=== PATIENT | female | born 1950 | race Caucasian/White ===

== ENCOUNTER 2024-05-21 17:06 | Inpatient (IN) | payer OTHER ==
[2024-05-21 18:17] LABS: Absolute Basophils 0.1 K/uL (0-0.5); Absolute Lymphocytes (CBC) 0.7 K/uL (0.7-4.9); Absolute Monocytes 0.6 K/uL (0.1-1.3); Absolute Neutrophil 4.3 K/uL (1.8-8.0); Basophils % 1.3 % (0-1.3); Eosinophils % 0.1 % (0-4.4); Hematocrit 41.2 % (36.0-45.0); Hemoglobin 12.7 g/dL (12.0-15.0); Lymphocytes % 12.7 % (15.3-44.8); MCH 28.4 pg (27.0-35.0); MCHC 30.9 g/dL (32.0-36.0); MCV 91.8 fL (80-100); Monocytes % 10.9 % (3.3-12.3); Nucleated Red Blood Cells % 0.1 % (0-0); Platelets 201 thou/uL (152-406); RBC Red Blood Cell Count 4.49 M/uL (3.86-4.86); Red Cell Distribution Width 13.8 % (12.1-15.2)
[2024-05-21 18:28] LABS: Anion Gap 7.6 mEq/L (5.0-15.0); Potassium 4.6 mEq/L (3.5-5.1); Troponin High Sensitivity 34.7 pg/mL (<58.9)
[2024-05-21 18:51] LABS: Specific Gravity 1.019 (1.005-1.030); Sqamous Epithelial None Seen /HPF (None Seen); Urine Bacteria >50 /HPF (<20); Urine Bilirubin NEGATIVE (Negative); Urine Blood Negative (Negative); Urine Clarity Extremely Turbid (Clear); Urine Color Yellow (Yellow); Urine Crystals Unidentified Few /HPF (None Seen); Urine Culture Reflex Order REFLEXED; Urine Glucose NEGATIVE (Negative); Urine Ketones NEGATIVE (Negative); Urine Microscopic Reflex YN ORDER UMIC; Urine Mucus 4+ /HPF (None Seen); Urine Nitrite NEGATIVE (Negative); Urine Protein 2+ (Negative); Urine RBC <5 /HPF (None Seen); Urine Urobilinogen 1+ (Normal); Urine WBC 20-50 /HPF (<5); Urine Yeast (Budding) Trace /HPF (None Seen); Urine pH 5.5 (5.0-7.0)
--- NOTE | 2024-05-21 19:31 | ER ---
Nurse's Notes [facility] Name: Romelia Banerjee Age: 73 yrs Sex: Female : 1950 Arrival Date: 05/21/2024 Time: 17:06 Bed 16 Private MD: Diagnosis: Altered mental status;PEE;UTI Presentation: 05/21 17:16 Chief complaint: EMS states: Toned out for unresponsive. Found to be very lethargic ll1 today. 18 EJ 1 L NS bolus given. 89% RA. Coronavirus screen: Client denies travel out of the [place] in the last 14 days. At this time, the client does not indicate any symptoms associated with coronavirus-19. Ebola Screen: Patient denies travel to an Ebola-affected area in the 21 days before illness onset. Initial Sepsis Screen: Does the patient meet any 2 criteria? No. Patient's initial sepsis screen is negative. Does the patient have a suspected source of infection? No. Patient's initial sepsis screen is negative. Risk Assessment: Do you want to hurt yourself or someone else? Patient reports no desire to harm self or others. Onset of symptoms was May 21, 2024. 17:16 Method Of Arrival: EMS ll1 17:16 Acuity: KIRAN 2 ll1 Historical: - Allergies: 17:15 Iodinated Contrast Media - IV Dye; ll1 17:15 Aspirin; ll1 17:15 Betadine; ll1 17:15 Codeine; ll1 17:15 Iodine; ll1 17:15 PENICILLINS; ll1 17:15 Sulfa (Sulfonamide Antibiotics); ll1 17:15 soap; ll1 17:15 Latex, Natural Rubber; ll1 - PMHx: 17:15 Left leg wound; PVD; restless leg syndrome; ll1 - Immunization history:: Adult Immunizations up to date. - Infectious Disease History:: UNKNOWN. - Social history:: Smoking status: Patient denies any tobacco usage or history of. Screenin:40 [facility] ED Fall Risk Assessment (Adult) History of falling in the last 3 months, ll1 including since admission No falls in past 3 months (0 pts) Confusion or Disorientation Yes (5 pts) Intoxicated or Sedated No (0 pts) Impaired Gait No (0 pts) Mobility Assist Device Used No (0 pt) Altered Elimination Yes (1 pt) Score/Fall Risk Level 3 or more points = High Risk Oriented to surroundings, Hourly rounding (assess needs \T\ fall precautionary measures) done. Abuse screen: Denies threats or abuse. Nutritional screening: No deficits noted. Tuberculosis screening: No symptoms or risk factors identified. Assessment: 17:37 General: Appears distressed, uncomfortable, Behavior is calm, cooperative, appropriate ll1 for age. Pain: Denies pain. Neuro: Reports weakness. 17:54 Reassessment: No changes from previously documented assessment. Patient and/or family ll1 updated on plan of care and expected duration. Pain level reassessed. Patient is alert, oriented x 3, equal unlabored respirations, skin warm/dry/pink. 18:40 Reassessment: No changes from previously documented assessment. Patient and/or family iw updated on plan of care and expected duration. Pain level reassessed. Patient is alert, oriented x 3, equal unlabored respirations, skin warm/dry/pink. 19:05 Reassessment: beside report to ROBBY Anderson. ll1 20:08 Reassessment: PT IS D/C FROM THE ER. ATTEMPTING TO CALL THE SPOUSE FOR PICK-UP. dd2 20:50 Reassessment: Attempted to call for d/c of pt. dd2 21:06 Reassessment: spoke with pt , will be on the way to pick her up. iw 21:26 Reassessment: LARGE SKIN TEAR AND BRUISING NOTED TO RT UPPER ARM/ELBOW. DRIED BLOOD dd2 NOTED TO THE DRESSING. PT AAOX1, O2 \T\ 3 LPM NC. Vital Signs: 17:24 BP 100 / 71; Pulse 82; Resp 20; Pulse Ox 95% on 3 lpm NC; Pain 0/10; ll1 17:58 BP 102 / 51; Pulse 75; Resp 20; Temp 98.1; Pulse Ox 98% on 3 lpm NC; ll1 19:35 BP 106 / 78; Pulse 84; Resp 16; Pulse Ox 94% on 3 lpm NC; dd2 20:30 BP 143 / 93; Pulse 79; Resp 17; Pulse Ox 97% ; dd2 21:30 BP 121 / 66; Pulse 85; Resp 17; Pulse Ox 95% on 4 lpm NC; dd2 23:15 BP 128 / 65; Pulse 86; Resp 18; Pulse Ox 97% ; dd2 05/22 00:34 BP 128 / 64; Pulse 76; Resp 18; Temp 98.4; Pulse Ox 95% on 4 lpm NC; dd2 05/21 17:24 Pain Scale: Adult ll1 ED Course: 05/21 17:15 Patient arrived in ED. ll1 17:17 Triage completed. ll1 17:18 Arm band placed on Patient placed in an exam room, on a stretcher. ll1 17:18 Maintain EMS IV. Dressing intact. Good blood return noted. Site clean \T\ dry. Gauge \T\ ll 1 site: 18 G R EJ. Oxygen administration via nasal cannula \T\ 3L/min. 17:20 Yunior Louis MD is Attending Physician. bo1 17:24 Iftikhar Girard, ROBBY is Primary Nurse. ll1 17:40 Patient has correct armband on for positive identification. Bed in low position. ll1 Provided Education on: ER procedures and process. Client placed on continuous cardiac and pulse oximetry monitoring. NIBP monitoring applied. 17:53 Initial lab(s) drawn, by me, sent to lab. EKG done. ll1 17:54 Warm blanket given. ll1 18:40 Lactate w/ 2H reflex if indic. Sent. iw 18:40 Urinalysis w/ reflexes Sent. iw 18:40 Urine collected: straight cath specimen, clear, Amount Returned: 200mL. Straight cath iw inserted, using sterile technique, 14 Fr. Specimen obtained. Patient tolerated well. 19:15 XRAY Chest (1 view) In Process Unspecified. EDMS 19:35 No provider procedures requiring assistance completed. dd2 21:29 Wound care: to SKIN TEAR TO RT UPPER ARM/ELBOW located on right antecubital area and dd2 dorsal aspect of right forearm was cleaned with with NORMAL SALINE, dressed with 4X4s, Kerlix, XEROFORM. 21:34 Attending Physician role handed off by Yunior Louis MD rt 21:34 Ortiz Alfredo MD is Attending Physician. rt 22:14 CT Head Brain wo Cont In Process Unspecified. EDMS 22:46 Prince Maldonado MD is Hospitalizing Provider. rt 05/22 01:25 Patient admitted, IV remains in place. dd2 Administered Medications: 05/21 20:04 Drug: Rocephin IV 2 grams IV at bolus once; Given slow IV push per pharmarcy dd2 instructions Route: IV; Rate: bolus; Site: right jugular; 20:14 Follow up: IV Status: Completed infusion; IV Intake: 10ml dd2 20:19 Follow up: Response: No adverse reaction dd2 22:52 Drug: NS 0.9% IV 1000 ml IV at 1000 ml once; to be given as a bolus over 60 minutes dd2 Route: IV; Rate: 1000 ml; Site: right jugular; 23:07 Follow up: Response: No adverse reaction dd2 23:52 Follow up: IV Status: Completed infusion; IV Intake: 1000ml dd2 Medication: 17:40 VIS not applicable for this client. ll1 Intake: 20:14 IV: 10ml; Total: 10ml. dd2 23:52 IV: 1000ml; Total: 1010ml. dd2 Outcome: 19:30 Discharge ordered by MD. montelongo 22:46 Decision to Hospitalize by Provider. rt 05/22 01:25 Admitted to Med/surg accompanied by tech, room 430, with chart, dd2 Condition: stable Instructed on the need for admit, 01:30 Patient left the ED. dd2 Signatures: Dispatcher [employer] EDYolanda Hair RN RN iw Iftikhar Girard RN RN ll1 Ortiz Alfredo MD MD rt Yunior Louis MD MD bo1 SHANICE ADHIKARI RN RN dd2
--- NOTE | 2024-05-21 19:31 | EDPHYS ---
Physician Documentation [facility] Name: Romelia Banerjee Age: 73 yrs Sex: Female : 1950 Arrival Date: 05/21/2024 Time: 17:06 Bed 16 Private MD: ED Physician Ortiz Alfredo HPI: 05/21 19:18 This 73 yrs old Female presents to ER via EMS with complaints of altered bo1 mental status. 19:18 Per spouse, pt was more lethargic than normal today. Onset: The symptoms/episode bo1 began/occurred gradually, today. Severity of symptoms: At their worst the symptoms were mild Change from her usual. No recent hospitalizations or falls, pt stays in bed with spouse providing the care. Historical: - Allergies: 17:15 Iodinated Contrast Media - IV Dye; ll1 17:15 Aspirin; ll1 17:15 Betadine; ll1 17:15 Codeine; ll1 17:15 Iodine; ll1 17:15 PENICILLINS; ll1 17:15 Sulfa (Sulfonamide Antibiotics); ll1 17:15 soap; ll1 17:15 Latex, Natural Rubber; ll1 - PMHx: 17:15 Left leg wound; PVD; restless leg syndrome; ll1 - Immunization history:: Adult Immunizations up to date. - Infectious Disease History:: UNKNOWN. - Social history:: Smoking status: Patient denies any tobacco usage or history of. ROS: 19:24 Constitutional: Negative for fever, chills, and weight loss bo1 19:24 Respiratory: Negative for cough, shortness of breath, acute changes, 19:24 : Negative for urinary symptoms, Pt wears a diaper, 19:24 MS/extremity: Positive for Contractures, scoliosis of the spine, Negative for acute changes, 19:24 Skin: Negative for rash, acute changes, 19:24 Neuro: Positive for altered mental status, Lethargy, Negative for 19:24 All other systems are negative, Exam: 19:26 Constitutional: The patient appears in no acute distress, non-toxic, bo1 19:26 Cardiovascular: Rate: normal, Irregular, 19:26 ECG was reviewed by the Attending Physician. 19:26 Respiratory: the patient does not display signs of respiratory distress, Respirations: normal, Breath sounds: are clear throughout, Contracted neck and extremities, 19:26 Abdomen/GI: Inspection: distension, is not seen, 19:26 Neuro: Mentation: responsive to voice able to follow commands, sleepy, Pt will and can respond, 19:32 Constitutional: This is a female in no acute distress. bo1 Vital Signs: 17:24 BP 100 / 71; Pulse 82; Resp 20; Pulse Ox 95% on 3 lpm NC; Pain 0/10; ll1 17:58 BP 102 / 51; Pulse 75; Resp 20; Temp 98.1; Pulse Ox 98% on 3 lpm NC; ll1 19:35 BP 106 / 78; Pulse 84; Resp 16; Pulse Ox 94% on 3 lpm NC; dd2 20:30 BP 143 / 93; Pulse 79; Resp 17; Pulse Ox 97% ; dd2 21:30 BP 121 / 66; Pulse 85; Resp 17; Pulse Ox 95% on 4 lpm NC; dd2 23:15 BP 128 / 65; Pulse 86; Resp 18; Pulse Ox 97% ; dd2 05/22 00:34 BP 128 / 64; Pulse 76; Resp 18; Temp 98.4; Pulse Ox 95% on 4 lpm NC; dd2 05/21 17:24 Pain Scale: Adult ll1 MDM: 05/21 17:20 Medical Screening Exam initiated bo1 19:22 Differential Diagnosis sepsis, UTI. Data reviewed: vital signs, old medical records, bo1 lab test result(s), EKG. 19:28 Data reviewed: radiologic studies, plain films, Contracted body, sub-optimal view of bo1 the chest but no distinct infiltrates seen on prelim view in the ER. 23:42 Consideration of Admission/Observation Patient was admitted/placed on observation. rt Management of patient was discussed with the following: Hospitalist: Agrees to admit. I considered the following discharge prescriptions or medication management in the emergency department Medications were administered in the Emergency Department. See MAR. Independent interpretation of the following test(s) in the Emergency Department CT Scan: My interpretation is No intracranial hemorrhage syndrome interpretation of CT scan images. Counseling: I had a detailed discussion with the patient and/or guardian regarding the historical points, exam findings, and any diagnostic results supporting the discharge/admit diagnosis, lab results, radiology results, the need for further work-up and treatment in the hospital. Response to treatment: There is no appreciated change of the patient's symptoms at this time. 05/21 17:41 Order name: Basic Metabolic Panel; Complete Time: 19:16 ll1 05/21 17:41 Order name: CBC with Diff; Complete Time: 19:16 ll1 05/21 17:41 Order name: Troponin HS; Complete Time: 19:16 ll1 05/21 18:13 Order name: Urinalysis w/ reflexes; Complete Time: 19:16 bo1 05/21 18:13 Order name: Lactate w/ 2H reflex if indic.; Complete Time: 19:16 bo1 05/21 18:56 Order name: Urine Culture [facility] 05/21 22:51 Order name: Creatine Phosphokinase [facility] 05/21 22:51 Order name: Lactate w/ 2H reflex if indic. [facility] 05/21 22:51 Order name: Magnesium [facility] 05/21 22:51 Order name: Phosphorus [facility] 05/21 22:51 Order name: Urinalysis w/ reflexes [facility] 05/21 22:51 Order name: Basic Metabolic Panel [facility] 05/21 22:51 Order name: Basic Metabolic Panel [facility] 05/21 22:51 Order name: CBC with Automated Diff [facility] 05/21 22:51 Order name: CBC with Automated Diff [facility] 05/21 17:41 Order name: XRAY Chest (1 view); Complete Time: 21:19 1 05/21 21:34 Order name: CT Head Brain wo Cont; Complete Time: 22:43 rt 05/21 17:41 Order name: EKG; Complete Time: 17:42 1 05/21 22:51 Order name: Physical Therapy Consult [facility] 05/21 17:41 Order name: Cardiac monitoring; Complete Time: 17:53 1 05/21 17:41 Order name: EKG - Nurse/Tech; Complete Time: 17:53 1 05/21 17:41 Order name: IV Saline Lock; Complete Time: 17:41 ll1 05/21 17:41 Order name: Labs collected and sent; Complete Time: 17:41 1 05/21 17:41 Order name: O2 Per Protocol; Complete Time: 17:41 ll1 05/21 17:41 Order name: O2 Sat Monitoring; Complete Time: 17:41 ll1 EC:26 Rate is 91 beats/min. Rhythm is irregular. QRS [place] is Normal. PA interval is normal. bo1 QRS interval is normal. QT interval is normal. No Q waves. T waves are Normal. No ST changes noted. Clinical impression: Abnormal EKG without significant change. Interpreted by me. Reviewed by me. Administered Medications: 20:04 Drug: Rocephin IV 2 grams IV at bolus once; Given slow IV push per pharmarcy dd2 instructions Route: IV; Rate: bolus; Site: right jugular; 20:14 Follow up: IV Status: Completed infusion; IV Intake: 10ml dd2 20:19 Follow up: Response: No adverse reaction dd2 22:52 Drug: NS 0.9% IV 1000 ml IV at 1000 ml once; to be given as a bolus over 60 minutes dd2 Route: IV; Rate: 1000 ml; Site: right jugular; 23:07 Follow up: Response: No adverse reaction dd2 23:52 Follow up: IV Status: Completed infusion; IV Intake: 1000ml dd2 Disposition Summary: 05/21/24 22:46 Hospitalization Ordered Notes: Hospitalization Status: Inpatient Admission rt Provider: Prince Erica rt Location: Telemetry/MedSurg (Inpatient)(05/21/24 22:46) rt Condition: Stable(05/21/24 22:46) rt Problem: new(05/21/24 22:46) rt Symptoms: are unchanged(05/21/24 22:46) rt Bed/Room Type: Standard rt Room Assignment: 405(05/21/24 23:19) rv1 Diagnosis - Altered mental status rt - PEE rt - UTI rt Forms: - Medication Reconciliation Form rt - SBAR form rt - Leadership Thank You Letter rt Signatures: Dispatcher [employer] EDMS Iftikhar Girard RN RN ll1 Ortiz Alfredo MD MD rt Janene David rv1 Yunior Louis MD MD bo1 SHANICE ADHIKARI RN RN dd2 Corrections: (The following items were deleted from the chart) 18:13 18:13 Urinalysis+U.LAB.BRZ ordered. EDMS EDMS 21:33 19:30 Home bo1 rt 21:33 19:30 new bo1 rt 21:33 19:30 are unchanged bo1 rt 21:33 19:30 Stable bo1 rt 21:33 19:30 UTI/ Urinary tract infection, site not specified bo1 rt 21:34 21:34 Head Brain Wo Cont+CT.RAD.BRZ ordered. EDMS EDMS 23: 22:46 rt rv1 23:16 23:07 404 rv1 rv1 23:19 23:16 rv1 rv1
[2024-05-21] MEDS ORDERED: CEFTRIAXONE 2000 MG/VIAL ONE (19:56)
--- NOTE | 2024-05-21 19:56 | RAD REPORT ---
EXAMINATION: ONE VIEW CHEST XR CLINICAL INDICATION: Female, 73 years old.,MALAISE TECHNIQUE: Frontal chest projection is submitted. Examination is limited by patient positioning and t echnique. COMPARISON: 01/29/2010 FINDINGS: Severe kyphotic deformity and patient rotation limits evaluation especially with portions of the lowe r jaw overlying the left upper lung. Allowing for this, no focal airspace opacity is appreciated, although the left costophrenic angle region appears opacified which could relate to patient rotation and/or prominent epicardial fat. No pneumothorax or sizable effusion. The heart is normal in size. Dense calcifications along the mitral valve Mediastinal contours are unremarkable. IMPRESSION: No acute intrathoracic abnormalities. Findings as above.
--- NOTE | 2024-05-21 22:42 | RAD REPORT ---
EXAM: CT Head Brain Wo Cont HISTORY: ams COMPARISON: None TECHNIQUE: Multiple contiguous axial images were obtained for a CT of the brain without contrast. Sag ittal and coronal reformats were performed. One or more of the following dose reduction techniques were used: Automated exposure control, adjus tment of the mA and kV according to patient size, and iterative reconstruction. Unless otherwise specified, incidental findings do not require dedicated imaging follow-up. FINDINGS: Patient's head positioning and prominent beam hardening artifact particularly along the frontal and p osterior fossa regions limited evaluation. No evidence of hydrocephalus, intracranial hemorrhage, or extra-axial fluid collection. Moderate brain atrophy with moderate periventricular and deep white matter chronic microvascular isc hemic changes present. The calvarium is intact. The visualized paranasal sinuses and mastoid air cells are essentially clear . IMPRESSION: No evidence of acute intracranial abnormality allowing for limitations mentioned above.
[2024-05-21] MEDS ORDERED: NA CHLORIDE 0.9% 1,000 ML ONE (22:44)
[2024-05-21] MEDS ORDERED: ONDANSETRON 4 MG/2 ML VIAL IV PRN (22:46)
--- NOTE | 2024-05-21 23:11 | P.HP ---
Certification for Inpatient Patient admitted to: Inpatient With expected LOS: >2 Midnights Practitioner: I am a practitioner with admitting privileges, knowledge of patient current condition, hospital course, and medical plan of care. Services: Services provided to patient in accordance with Admission requirements found in Title 42 Section 412.3 of the Code of Federal Regulations Patient History Date of Service: 05/21/24 Reason for admission: AMS, PEE/UTI History of Present Illness: Patient is a 73-year-old female brought in via EMS for evaluation of altered mental status. She is unable to provide reliable history. As per , patient has been unable to walk for the past 3 days. Her mental status is also been declining in the interim PERIOD. She usually ambulates with a walker despite a contracted neck. Workup in the ER significant for PEE with a creatinine 1.63, abnormal urine analysis. During my evaluation, patient complained of pain. She looked clinically dry, cachectic and contracted. She is unable to provide much history. She received a dose of ceftriaxone in the ER. Allergies aspirin Allergy (Unverified 09/14/16 05:15) Unknown codeine Allergy (Verified 08/27/13 00:58) Hives/Rash Iodinated Contrast Media [Iodinated Contrast Media - IV Dye] Allergy (Verified 08/27/13 00:58) Itching/Hives/Rash Penicillins Allergy (Verified 08/27/13 00:28) Itching, hives, rash povidone-iodine [From Betadine] Allergy (Unverified 09/14/16 05:15) Unknown soap [From Betadine] Allergy (Unverified 09/14/16 05:15) Unknown Sulfa (Sulfonamide Antibiotics) Allergy (Verified 08/27/13 00:57) Nausea/Vomiting latex Adverse Reaction (Verified 10/25/14 16:03) Shortness of breath Iodine-Iodi Allergy (Uncoded 03/19/15 13:50) Unknown Home Medications: Multivitamin [Multivitamins] 1 cap PO DAILY 10/25/14 Ropinirole HCl [Requip*] 0.25 mg PO DAILY 10/25/14 Trazodone HCl [Desyrel] 100 mg PO BEDTIME 10/25/14 Venlafaxine HCl *Xr* [Effexor XR] 75 mg PO BID 10/25/14 Biotin 5 mg PO DAILY 12/16/19 clonazePAM [Clonazepam] 0.5 mg PO DAILY PRN 12/16/19 - Past Medical/Surgical History Diabetic: No -: DVT -: depression -: L neck pain -: hx of colon cancer -: Breast cancer -: CHF -: Kidney failure -: Diabetes -: L neck internal tens unit -: L eye muscle surgery -: tonsillectomy -: hysterectomy -: hysterectomy -: colon resection -: double masectomy -: L leg sx and R knee sx - Social History Alcohol use: No CD- Drugs: No Caffeine use: Yes Physical Examination - Physical Exam General: Cachectic, Other (Contracted, disheveled) Respiratory: Clear to auscultation bilaterally, Normal air movement Cardiovascular: No edema, Normal pulses, Regular rate/rhythm, Normal S1 S2 Neurological: Other (CONFUSED) - Studies Laboratory Data (last 24 hrs) 05/21/24 05/21/24 17:45 17:45 WBC 5.80 Hgb 12.7 Hct 41.2 Plt Count 201 Sodium 140 Potassium 4.6 BUN 26 H Creatinine 1.63 H Glucose 89 Assessment and Plan - Problems (Diagnosis) (1) Acute encephalopathy Current Visit: Yes Status: Acute (2) Generalized weakness Current Visit: Yes Status: Acute (3) Depression Current Visit: No Status: Acute (4) History of breast cancer Current Visit: No Status: Acute (5) History of colon cancer Current Visit: No Status: Acute (6) Osteoarthritis Current Visit: No Status: Acute - Plan Assessment Patient is a 73-year-old female with a past medical history of cervical spondylolysis, anxiety and depression. She is brought in by EMS for evaluation of altered mental status and inability to walk. Workup in the ER has revealed evidence of UTI and acute kidney injury. Patient's mental status is also below baseline. Her CT head was unremarkable. Acute metabolic encephalopathy UTI PEE Cervical spondylolysis Generalized weakness Severe malnutrition Plan: Will admit inpatient with telemetry Continue patient on ceftriaxone and IV fluid infusion Follow urine culture PT/OT ordered DVT prophylaxis Will go ahead and place a nutrition consult and a social services assistant consult - Advance Directives Does patient have a Living Will: No Does patient have a Durable POA for Healthcare: No
[2024-05-22] MEDS: HEPARIN 5000 UNIT/ML 1 ML VIAL SQ SCH (01:00)
[2024-05-22 02:47] VITALS: BMI 21.4
[2024-05-22] MEDS: NA CHLORIDE 0.9% 1,000 ML IV SCH (02:54)
[2024-05-22 07:20] LABS: Absolute Lymphocytes (CBC) 0.6 K/uL (0.7-4.9); Absolute Monocytes 0.7 K/uL (0.1-1.3); Absolute Neutrophil 6.7 K/uL (1.8-8.0); Basophils % 0.1 % (0-1.3); Hematocrit 44.8 % (36.0-45.0); Hemoglobin 13.7 g/dL (12.0-15.0); Lymphocytes % 7.5 % (15.3-44.8); MCH 28.1 pg (27.0-35.0); MCHC 30.7 g/dL (32.0-36.0); MCV 91.3 fL (80-100); MPV 7.9 fL (7.6-11.3); Magnesium 1.9 mg/dL (1.6-2.4); Monocytes % 8.5 % (3.3-12.3); Neutrophils % 83.9 % (41.7-73.7); Phosphorus 2.6 mg/dL (2.5-4.9); Platelets 197 thou/uL (152-406); Red Cell Distribution Width 13.9 % (12.1-15.2)
[2024-05-22 07:28] LABS: Anion Gap 12.3 mEq/L (5.0-15.0); Potassium 4.3 mEq/L (3.5-5.1)
[2024-05-22] MEDS: CEFTRIAXONE 1,000 MG in NA CHLORIDE 0.9% 50 ML IVPB SCH (08:43)
--- NOTE | 2024-05-22 11:49 | P.PN ---
Date of Service: 05/22/24 Subjective: family reports decreased intake at home, doesn't get out of bed much Hasn't been able to walk for last 3 days. Previously able to ambulate with walker unassisted. confusion started last night per patient Most info obtained from at bedside. ROS: 10 point ROS as noted above, otherwise negative Physical Exam: GEN: Awake, confused, oriented x1 HEENT: contracted neck , resting on left upper chest CV: Regular rate and rhythm, no edema Pulm: diminished bilaterally at basesm, on 5L NC ABD: soft, nontender, nondistended Integumentary: dry skin, scattered ecchymosis and skin tears Problem List: Acute metabolic encephalopathy, likely secondary to UTI PEE, prerenal, improved Generalized weakness Severe protein calorie malnutrition NIDDM2 chronic CHF Hx DVT Hx breast cancer s/p double masectomy Hx colon cancer s/p resection Acute metabolic encephalopathy, likely secondary to UTI Generalized weakness Severe protein calorie malnutrition Patient presents with progressive weakness, decreased responsiveness. Inability to walk for 3 days. +decreased intake. prior to this episode, was able to ambulate with a walker unassisted. Needed some assistance with transfers. no history of dementia per at bedside CT head was negative for any acute findings allowing for limitations Continue empiric rocephin (05/21-) urine cx (05/21): 4+ GNR prelim follow urine culture continue IV fluids PEE, prerenal, improved continue IV fluids continue to monitor renal function improved with IVF NIDDM2 accu-cheks, SSI chronic CHF Hx DVT Hx breast cancer s/p double masectomy Hx colon cancer s/p resection confirm home meds, restart as appropriate states he will bring in med list VTE: heparin sq Code: Full Dispo: Home, ~3 days Family updated at bedside 05/22 Time Spent Managing Pts Care (In Minutes): 55
[2024-05-22 16:42] LABS: Specific Gravity 1.016 (1.005-1.030); Sqamous Epithelial <5 /HPF (None Seen); Urine Bacteria <20 /HPF (<20); Urine Bilirubin NEGATIVE (Negative); Urine Blood Negative (Negative); Urine Clarity Extremely Turbid (Clear); Urine Color Yellow (Yellow); Urine Crystals Unidentified Few /HPF (None Seen); Urine Culture Reflex Order NOT NEEDED; Urine Glucose NEGATIVE (Negative); Urine Ketones 2+ (Negative); Urine Microscopic Reflex YN ORDER UMIC; Urine Mucus Slight /HPF (None Seen); Urine Nitrite NEGATIVE (Negative); Urine Protein 1+ (Negative); Urine RBC <5 /HPF (None Seen); Urine Urobilinogen Normal (Normal); Urine WBC Clump Rare /HPF (None Seen); Urine Yeast (Budding) Trace /HPF (None Seen); Urine pH 5.5 (5.0-7.0)
[2024-05-22] MEDS: GABAPENTIN 100 MG CAP PO SCH (18:13)
[2024-05-22] MEDS: TRAZODONE 50 MG TABLET PO SCH (20:13)
[2024-05-22] MEDS: VENLAFAXINE HCL XR 75 MG CAP PO SCH (20:13)
[2024-05-23 06:50] LABS: Absolute Lymphocytes (CBC) 0.4 K/uL (0.7-4.9); Absolute Monocytes 0.5 K/uL (0.1-1.3); Absolute Neutrophil 5.4 K/uL (1.8-8.0); Basophils % 0.3 % (0-1.3); Hematocrit 44.2 % (36.0-45.0); Hemoglobin 13.8 g/dL (12.0-15.0); Lymphocytes % 6.8 % (15.3-44.8); MCH 28.2 pg (27.0-35.0); MCHC 31.3 g/dL (32.0-36.0); MCV 89.9 fL (80-100); Monocytes % 8.2 % (3.3-12.3); Neutrophils % 84.7 % (41.7-73.7); Nucleated Red Blood Cells % 0.1 % (0-0); Platelets 226 thou/uL (152-406); RBC Red Blood Cell Count 4.91 M/uL (3.86-4.86); Red Cell Distribution Width 14.1 % (12.1-15.2)
[2024-05-23 06:54] LABS: AST/SGOT 27 U/L (15-37); Albumin 2.9 g/dL (3.4-5.0); Albumin/Globulin Ratio 0.8 (1.1-1.8); Alkaline Phosphatase 75 U/L (45-117); Anion Gap 5.5 mEq/L (5.0-15.0); BUN Blood Urea Nitrogen 18 mg/dL (7-18); Bicarbonate 34 mEq/L (21-32); Bilirubin Total 0.4 mg/dL (0.2-1.0); Globulin 3.8 g/dL (2.3-3.5); Glomerular Filtration Rate 95 ml/min (=/>90); Glucose Level 137 mg/dL (74-106); Magnesium 1.8 mg/dL (1.6-2.4); Potassium 3.5 mEq/L (3.5-5.1); Protein, Total 6.7 g/dL (6.4-8.2); Sodium Level 144 mEq/L (136-145)
[2024-05-23 06:56] LABS: ALT/SGPT < 14 U/L (13-56)
[2024-05-23] MEDS: POTASSIUM CL SA 10 MEQ TAB PO ONE (08:31)
[2024-05-23] MEDS: ROPINIROLE HCL 0.25 MG TAB PO SCH (08:31)
[2024-05-23] MEDS: Levofloxacin 750mg IV 750 MG/150 ML BAG IV SCH (08:31)
[2024-05-23] MEDS: MULTIVITAMIN TAB PO SCH (08:31)
--- NOTE | 2024-05-23 08:46 | P.PN ---
Date of Service: 05/23/24 Subjective: mentation improving. More awake, talkative. Oriented x1-2 responding to some questions appropriately bladder scan last night with > 400 mL. Straight cathed overnight yielded ~550 mL urine ROS: 10 point ROS as noted above, otherwise negative Physical Exam: GEN: Awake, confused, Oriented x1-2 (knows her name and that we are in [place]) HEENT: contracted neck , resting on left upper chest CV: Regular rate and rhythm, no edema Pulm: diminished bilaterally at basesm, on 5L NC ABD: soft, nontender, nondistended Integumentary: dry skin, scattered ecchymosis and skin tears Problem List: Acute metabolic encephalopathy secondary to UTI Urinary retention PEE, prerenal, improved Generalized weakness Severe protein calorie malnutrition NIDDM2 chronic CHF Hx DVT Hx breast cancer s/p double masectomy Hx colon cancer s/p resection Acute metabolic encephalopathy secondary to UTI Urinary retention Generalized weakness Severe protein calorie malnutrition Patient presents with progressive weakness, decreased responsiveness. Inability to walk for 3 days. +decreased intake. prior to this episode, was able to ambulate with a walker unassisted. Needed some assistance with transfers. Patient states she uses home oxygen but unsure on settings. Will confirm with given her confusion no history of dementia per at bedside CT head was negative for any acute findings allowing for limitations urine cx (05/21): E. coli with intermediate resistance to rocephin Rocephin (05/21-05/22) switched to IV levaquin following culture results continue IV levaquin (05/23-) bladder scan overnight with > 400 mL retained urine yielded ~550 mL urine after straight cath overnight repeat bladder scan post void with 208mL may benefit from calderon placement. continue IV fluids; decreased to 30mL/hr (05/23) PEE, prerenal, improved continue to monitor renal function improved with IVF NIDDM2 accu-cheks, SSI chronic CHF Hx DVT Hx breast cancer s/p double masectomy Hx colon cancer s/p resection confirm home meds, restart as appropriate states he will bring in med list VTE: heparin sq Code: Full Dispo: Home, ~2-3 days Family updated at bedside 05/22 Time Spent Managing Pts Care (In Minutes): 55
[2024-05-23] MEDS ORDERED: VENLAFAXINE HCL XR 75 MG CAP PO SCH (09:00)
[2024-05-23] MEDS: NALTREXONE HCL 4.5 MG PO SCH (09:00)
[2024-05-23] MEDS: Magnesium Sulfate 2gm IVPB 2 G/50 ML BAG IV ONE (10:26)
[2024-05-23] MEDS: NA CHLORIDE 0.9% 1,000 ML IV SCH (10:27)
--- NOTE | 2024-05-23 12:01 | EKG ---
Test Date: 2024-05-21 Test Time: 17:49:48 [employer]ier Court[employer]: LML MEASUREMENT RESULTS: Intervals: Rate: 91 FL: QRSD: 80 QT: 376 QTc: 462 [place]: P: FL: QRS: 35 T: 12 INTERPRETIVE STATEMENTS: Normal sinus rhythm with sinus arrhythmia Electronically Signed On 05-23-24 12:00:35 MANAGER EMPLOYMENT by Pollo Carvalho
[2024-05-24 06:48] LABS: Albumin 2.4 g/dL (3.4-5.0); Albumin/Globulin Ratio 0.7 (1.1-1.8); Anion Gap 5.7 mEq/L (5.0-15.0); Bilirubin Total 0.5 mg/dL (0.2-1.0); Globulin 3.3 g/dL (2.3-3.5); Magnesium 1.9 mg/dL (1.6-2.4); Potassium 3.7 mEq/L (3.5-5.1); Protein, Total 5.7 g/dL (6.4-8.2)
[2024-05-24 08:02] LABS: Absolute Lymphocytes (CBC) 0.7 K/uL (0.7-4.9); Absolute Monocytes 0.8 K/uL (0.1-1.3); Absolute Neutrophil 3.9 K/uL (1.8-8.0); Basophils % 0.3 % (0-1.3); Eosinophils % 0.3 % (0-4.4); Hematocrit 38.3 % (36.0-45.0); Hemoglobin 12.3 g/dL (12.0-15.0); Lymphocytes % 13.1 % (15.3-44.8); MCH 28.5 pg (27.0-35.0); MCV 89.1 fL (80-100); MPV 7.2 fL (7.6-11.3); Monocytes % 14.6 % (3.3-12.3); Neutrophils % 71.7 % (41.7-73.7); Nucleated Red Blood Cells % 0.2 % (0-0); Platelets 189 thou/uL (152-406); Red Cell Distribution Width 13.7 % (12.1-15.2)
[2024-05-24] MEDS: POTASSIUM CL SA 10 MEQ TAB PO ONE (11:54)
--- NOTE | 2024-05-24 16:03 | P.PN ---
Subjective Date of Service: 05/24/24 Chief Complaint: AMS, PEE/UTI Spouse reports patient mental status significantly improved No issues overnight. No recorded fever Patient tolerated diet according to spouse. Physical Examination - Vital Signs Temperature: 98.2 F Blood Pressure: 191/85 Pulse: 110 Respirations: 18 Pulse Ox (%): 95 Assessment And Plan - Plan Physical Exam: GEN: Awake, confused, Oriented x 2 Neck: contracted neck/torticollis, kyphosis. CV: Regular rate and rhythm, no edema Pulm: diminished bilaterally, no rhonchi or crackles. ABD: soft, nontender, nondistended Integumentary: dry skin, scattered ecchymosis and skin tears Problem List: Acute metabolic encephalopathy secondary to UTI Urinary retention PEE, prerenal, improved Generalized weakness Severe protein calorie malnutrition NIDDM2 chronic CHF Hx DVT Hx breast cancer s/p double masectomy Hx colon cancer s/p resection Acute metabolic encephalopathy secondary to UTI Urinary retention Generalized weakness Severe protein calorie malnutrition Patient presents with progressive weakness, decreased responsiveness. Patient was able to ambulate with a walker by baseline according to report no history of dementia per at bedside CT head was negative for any acute findings. urine cx (05/21): E. coli with intermediate resistance to rocephin Rocephin (05/21-05/22) switched to IV levaquin following culture results continue IV levaquin (05/23-) Monitor postvoid residual continue IV fluids; decreased to 30mL/hr (05/23) PEE, prerenal Resolved with IV fluid continue to monitor renal function NIDDM2 accu-cheks, SSI Hx DVT Hx breast cancer s/p double masectomy Hx colon cancer s/p resection Continue home medications. VTE: heparin sq Code: Full Dispo: Home. Plan of care discussed with the .
[2024-05-24 17:12] LABS: Arterial Blood Carboxyhemoglob 1.3 % (0-1.5); Blood Gas Oxyhemoglobin 76.4 % (94-97); Blood Gas THB 13.4 g/dl (12-18); Blood O2 Saturation 78.8 % (92-98.5)
[2024-05-24] MEDS: METOPROLOL TARTRATE 5 MG/5 ML INJ IV ONE (19:12)
[2024-05-24] MEDS: METOPROLOL TARTRATE 5 MG/5 ML INJ IV STA ×2 (19:16→19:18)
--- NOTE | 2024-05-24 19:28 | P.PN ---
Date of Service: 05/24/24 Notified by nurse around 1906 hrs that a rapid was called on this patient. The nurse requested I come to the patient's bedside as the patient is now on a nonrebreather mask, and has a heart rate in the 140s. I immediately reported to the patient's bedside. The patient's stated prior to me entering the patient's room, that he wanted to change the patient's CODE STATUS to DO NOT RESUSCITATE. 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 Taylor (via telephone speaker) and all of his questions were answered to his satisfaction. Decision was made to place the patient on BiPAP with CODE STATUS DNR. Also, CXR, and metoprolol 5 mg IV was ordered.
[2024-05-24] MEDS: ENSURE ENLIVE 237 ML CAN PO SCH (21:00)
[2024-05-25] MEDS: METOPROLOL TARTRATE 5 MG/5 ML INJ IV PRN (15:02)
--- NOTE | 2024-05-25 16:17 | P.PN ---
Subjective Date of Service: 05/25/24 Chief Complaint: AMS, PEE/UTI Patient developed respiratory distress last night, respiratory rate up to the 40s and heart rate up to 160. Chest x-ray did not show any significant changes. Patient placed on BiPAP overnight and weaned off BiPAP this morning. She has been tolerating oxygen by nasal cannula so far. She occasionally has tachycardia. No recorded fever She was fed breakfast with assistance this morning. Physical Examination - Vital Signs Temperature: 98.5 F Blood Pressure: 129/82 Pulse: 100 Respirations: 18 Pulse Ox (%): 93 Assessment And Plan - Plan Physical Exam: GEN: Awake, confused, Oriented x 2 Neck: contracted neck/torticollis, kyphosis. CV: Regular rate and rhythm, no edema Pulm: diminished bilaterally, no rhonchi or crackles. ABD: soft, nontender, nondistended Integumentary: dry skin, scattered ecchymosis and skin tears Problem List: Acute metabolic encephalopathy secondary to UTI Urinary retention PEE, prerenal, improved Generalized weakness Severe protein calorie malnutrition NIDDM2 chronic CHF Hx DVT Hx breast cancer s/p double masectomy Hx colon cancer s/p resection Acute metabolic encephalopathy secondary to UTI Urinary retention Generalized weakness Severe protein calorie malnutrition Patient presents with progressive weakness, decreased responsiveness. Patient was able to ambulate with a walker at baseline according to report no history of dementia per at bedside CT head was negative for any acute findings. urine cx (05/21): E. coli with intermediate resistance to rocephin Rocephin (05/21-05/22) switched to IV levaquin following culture results continue IV levaquin (05/23-) Discontinue IV fluid. Acute respiratory failure with hypoxia and hypercapnia Associated with reflex tachycardia. Respiratory failure likely secondary to hypoventilation. Continue oxygen by nasal cannula BiPAP as needed Metoprolol IV as needed for SVT. PEE, prerenal Resolved with IV fluid continue to monitor renal function NIDDM2 accu-cheks, SSI Hx DVT Hx breast cancer s/p double masectomy Hx colon cancer s/p resection Continue home medications. Patient made DNR by . is also considering hospice if no significant clinical improvement. VTE: heparin sq Code: DNR Dispo: Home. Plan of care discussed with the .
[2024-05-25] MEDS: clonazePAM 0.5 MG TAB PO PRN (20:26)
--- NOTE | 2024-05-26 13:21 | P.PN ---
Subjective Date of Service: 05/26/24 Chief Complaint: AMS, PEE/UTI No major changes from yesterday. No issues overnight. Patient is on oxygen by nasal cannula. Physical Examination - Vital Signs Temperature: 98.2 F Blood Pressure: 142/72 Pulse: 105 Respirations: 22 Pulse Ox (%): 76 Assessment And Plan - Plan Physical Exam: GEN: Awake, confused, Oriented x 2 Neck: contracted neck/torticollis, kyphosis. CV: Regular rate and rhythm, no edema Pulm: diminished bilaterally, no rhonchi or crackles. ABD: soft, nontender, nondistended Integumentary: dry skin, scattered ecchymosis and skin tears Problem List: Acute metabolic encephalopathy secondary to UTI Urinary retention PEE, prerenal, improved Generalized weakness Severe protein calorie malnutrition NIDDM2 chronic CHF Hx DVT Hx breast cancer s/p double masectomy Hx colon cancer s/p resection Acute metabolic encephalopathy secondary to UTI Urinary retention Generalized weakness Severe protein calorie malnutrition Patient presents with progressive weakness, decreased responsiveness. Patient was able to ambulate with a walker at baseline according to report no history of dementia per at bedside CT head was negative for any acute findings. urine cx (05/21): E. coli with intermediate resistance to rocephin Rocephin (05/21-05/22) switched to IV levaquin following culture results continue IV levaquin (05/23-) Resume PT Acute respiratory failure with hypoxia and hypercapnia Associated with reflex tachycardia. Respiratory failure likely secondary to hypoventilation. Continue oxygen by nasal cannula BiPAP as needed Metoprolol IV as needed for SVT. PEE, prerenal Resolved with IV fluid continue to monitor renal function NIDDM2 accu-cheks, SSI Hx DVT Hx breast cancer s/p double masectomy Hx colon cancer s/p resection Continue home medications. Patient made DNR by . is also considering hospice if no significant clinical improvement. VTE: heparin sq Code: DNR Dispo: Home.
--- NOTE | 2024-05-27 13:59 | P.PN ---
Subjective Date of Service: 05/27/24 Chief Complaint: AMS, PEE/UTI feels patient is doing much better. Patient has been awake, finished her meal, participate in a conversation. No issues overnight. Patient is on 8-10 L oxygen by nasal cannula. reports decreased hearing in the right ear. 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 Neck: contracted neck/torticollis, kyphosis. CV: Regular rate and rhythm, no edema Pulm: diminished bilaterally, no rhonchi or crackles. ABD: soft, nontender, nondistended Integumentary: dry skin, scattered ecchymosis. Problem List: Acute metabolic encephalopathy secondary to UTI Urinary retention PEE, prerenal, improved Generalized weakness Severe protein calorie malnutrition NIDDM2 chronic CHF Hx DVT Hx breast cancer s/p double masectomy Hx colon cancer s/p resection Plan: Acute metabolic encephalopathy secondary to UTI Urinary retention Generalized weakness Severe protein calorie malnutrition Patient presents with progressive weakness, decreased responsiveness. Patient was able to ambulate with a walker at baseline according to report no history of dementia per at bedside CT head was negative for any acute findings. urine cx (05/21): E. coli with intermediate resistance to rocephin Rocephin (05/21-05/22) switched to IV levaquin following culture results continue IV levaquin (05/23-). Antibiotics day 6. Resume PT Acute respiratory failure with hypoxia and hypercapnia Associated with reflex tachycardia. Respiratory failure likely secondary to hypoventilation. Wean oxygen to keep SaO2 88 to 92%. BiPAP as needed Metoprolol IV as needed for SVT. PEE, prerenal Resolved with IV fluid continue to monitor renal function NIDDM2 accu-cheks, SSI Hx DVT Hx breast cancer s/p double masectomy Hx colon cancer s/p resection Continue home medications. Patient made DNR by . is also considering hospice if no significant clinical improvement. VTE: heparin sq Code: DNR Dispo: Home.
[2024-05-27 14:11] LABS: Absolute Eosinophils 0.1 K/uL (0-0.5); Absolute Lymphocytes (CBC) 0.9 K/uL (0.7-4.9); Absolute Monocytes 0.8 K/uL (0.1-1.3); Absolute Neutrophil 4.2 K/uL (1.8-8.0); Basophils % 0.3 % (0-1.3); Eosinophils % 1.6 % (0-4.4); Hematocrit 38.1 % (36.0-45.0); Lymphocytes % 14.7 % (15.3-44.8); MCH 28.2 pg (27.0-35.0); MCHC 31.4 g/dL (32.0-36.0); MCV 89.9 fL (80-100); MPV 7.9 fL (7.6-11.3); Monocytes % 13.5 % (3.3-12.3); Neutrophils % 69.9 % (41.7-73.7); Platelets 182 thou/uL (152-406); RBC Red Blood Cell Count 4.24 M/uL (3.86-4.86); Red Cell Distribution Width 13.9 % (12.1-15.2)
[2024-05-27 14:16] LABS: Anion Gap 6.8 mEq/L (5.0-15.0); Potassium 3.8 mEq/L (3.5-5.1)
[2024-05-27] MEDS: ACETAMINOPHEN 500 MG TAB PO PRN (18:09)
[2024-05-27 18:40] LABS: Magnesium 1.5 mg/dL (1.6-2.4); Phosphorus 2.6 mg/dL (2.5-4.9)
[2024-05-27] MEDS: ROPINIROLE HCL 0.25 MG TAB PO SCH (19:48)
[2024-05-27] MEDS: Magnesium Sulfate 2gm IVPB 2 G/50 ML BAG IV ONE (20:40)
[2024-05-28 06:46] LABS: Anion Gap 7.4 mEq/L (5.0-15.0); BUN Blood Urea Nitrogen 8 mg/dL (7-18); Bicarbonate 37 mEq/L (21-32); Glucose Level 85 mg/dL (74-106); Potassium 3.4 mEq/L (3.5-5.1); Sodium Level 137 mEq/L (136-145)
[2024-05-28 06:48] LABS: Glomerular Filtration Rate 117 ml/min (=/>90)
--- NOTE | 2024-05-28 12:55 | P.PN ---
Subjective Date of Service: 05/28/24 Chief Complaint: AMS, PEE/UTI Patient is awake and conversant. Oxygen weaned down to 7 L high flow. No issues overnight. . Physical Examination - Vital Signs Temperature: 98 F Blood Pressure: 127/70 Pulse: 84 Respirations: 14 Pulse Ox (%): 98 Assessment And Plan - Plan Physical Exam: GEN: Awake, Oriented x 2 Neck: contracted neck/torticollis, kyphosis. CV: Regular rate and rhythm, no edema Pulm: diminished bilaterally, no rhonchi or crackles. ABD: soft, nontender, nondistended Integumentary: dry skin, scattered ecchymosis. Problem List: Acute metabolic encephalopathy secondary to UTI Urinary retention PEE, prerenal, improved Generalized weakness Severe protein calorie malnutrition NIDDM2 chronic CHF Hx DVT Hx breast cancer s/p double masectomy Hx colon cancer s/p resection Plan: Acute metabolic encephalopathy secondary to UTI Urinary retention Generalized weakness Severe protein calorie malnutrition Patient was able to ambulate with a walker at baseline according to report no history of dementia per at bedside. Mental status significantly improved and patient is at baseline. CT head was negative for any acute findings. urine cx (05/21): E. coli with intermediate resistance to rocephin Rocephin (05/21-05/22) switched to IV levaquin following culture results continue IV levaquin (05/23-). Antibiotics day 6. Continue PT Acute respiratory failure with hypoxia and hypercapnia Associated with reflex tachycardia. Respiratory failure likely secondary to hypoventilation. Patient is currently tolerating 7 L high flow oxygen Wean oxygen to keep SaO2 88 to 92%. BiPAP as needed Metoprolol IV as needed for SVT. PEE, prerenal Resolved with IV fluid continue to monitor renal function NIDDM2 accu-cheks, SSI Hx DVT Hx breast cancer s/p double masectomy Hx colon cancer s/p resection Continue home medications. Patient made DNR by . is also considering hospice if no significant clinical improvement. Monitor response to treatment over the weekend, revisit goals of care discussion on Thursday. VTE: heparin sq Code: DNR Dispo: Home.
[2024-05-28] MEDS: POTASSIUM CL SA 10 MEQ TAB PO ONE (13:19)
[2024-05-28] MEDS: MELATONIN 3 MG TABLET PO PRN (23:33)
[2024-05-29 06:23] LABS: Anion Gap 3.8 mEq/L (5.0-15.0); Potassium 3.8 mEq/L (3.5-5.1)
[2024-05-29] MEDS: POTASSIUM CL SA 10 MEQ TAB PO ONE (09:33)
--- NOTE | 2024-05-29 13:52 | P.PN ---
Subjective Date of Service: 05/29/24 Chief Complaint: AMS, PEE/UTI Patient is clinically improving. She is currently tolerating 4 L oxygen by nasal. No issues overnight She is tolerating diet. . Physical Examination - Vital Signs Temperature: 98.1 F Blood Pressure: 137/74 Pulse: 91 Respirations: 14 Pulse Ox (%): 90 Assessment And Plan - Plan Physical Exam: GEN: Awake, Oriented x 2 Neck: contracted neck/torticollis, kyphosis. CV: Regular rate and rhythm, no edema Pulm: diminished bilaterally, no rhonchi or crackles. ABD: soft, nontender, nondistended Integumentary: dry skin, scattered bruises on extremities. Problem List: Acute metabolic encephalopathy secondary to UTI Urinary retention PEE, prerenal, improved Generalized weakness Severe protein calorie malnutrition NIDDM2 chronic CHF Hx DVT Hx breast cancer s/p double masectomy Hx colon cancer s/p resection Plan: Acute metabolic encephalopathy secondary to UTI Urinary retention Generalized weakness Severe protein calorie malnutrition Patient was able to ambulate with a walker at baseline according to report no history of dementia per at bedside. Mental status significantly improved and patient is at baseline. CT head was negative for any acute findings. urine cx (05/21): E. coli with intermediate resistance to rocephin Rocephin (05/21-05/22) switched to IV levaquin following culture results continue IV levaquin (05/23-). Antibiotics day 7. Continue PT Acute respiratory failure with hypoxia and hypercapnia Associated with reflex tachycardia. Respiratory failure likely secondary to hypoventilation. Patient is currently tolerating 5-6 L high flow oxygen Clinically improving. Wean oxygen to keep SaO2 88 to 92%. BiPAP as needed Metoprolol IV as needed for SVT. PEE, prerenal Resolved with IV fluid continue to monitor renal function NIDDM2 accu-cheks, SSI Hx DVT Hx breast cancer s/p double masectomy Hx colon cancer s/p resection Continue home medications. Patient made DNR by . is also considering hospice if no significant clinical improvement. Monitor response to treatment for the next 24 hours, revisit goals of care discussion tomorrow. VTE: heparin sq Code: DNR Dispo: Home.
[2024-05-30 05:59] LABS: Absolute Eosinophils 0.1 K/uL (0-0.5); Absolute Lymphocytes (CBC) 0.8 K/uL (0.7-4.9); Absolute Monocytes 0.7 K/uL (0.1-1.3); Absolute Neutrophil 3.5 K/uL (1.8-8.0); Basophils % 0.3 % (0-1.3); Eosinophils % 2.9 % (0-4.4); Hematocrit 36.7 % (36.0-45.0); Hemoglobin 11.4 g/dL (12.0-15.0); Lymphocytes % 15.5 % (15.3-44.8); MCH 28.2 pg (27.0-35.0); MCV 91.1 fL (80-100); MPV 7.6 fL (7.6-11.3); Neutrophils % 67.3 % (41.7-73.7); Platelets 190 thou/uL (152-406); RBC Red Blood Cell Count 4.03 M/uL (3.86-4.86); Red Cell Distribution Width 13.7 % (12.1-15.2)
[2024-05-30 06:24] LABS: Anion Gap 3.8 mEq/L (5.0-15.0); Potassium 3.8 mEq/L (3.5-5.1)
[2024-05-30] MEDS: POTASSIUM 25 MEQ EFFERV TAB PO ONE (08:04)
--- NOTE | 2024-05-30 18:54 | P.PN ---
Subjective Date of Service: 05/30/24 Chief Complaint: AMS, PEE/UTI No changes from yesterday. Patient is maintained on 6 L oxygen by nasal cannula. She is tolerating diet. . Physical Examination - Vital Signs Temperature: 98.3 F Blood Pressure: 129/79 Pulse: 94 Respirations: 16 Pulse Ox (%): 100 Assessment And Plan - Plan Physical Exam: GEN: Awake, Oriented x 2 Neck: contracted neck/torticollis, kyphosis. CV: Regular rate and rhythm, no edema Pulm: diminished bilaterally, no rhonchi or crackles. ABD: soft, nontender, nondistended Integumentary: scattered bruises on extremities. Problem List: Acute metabolic encephalopathy secondary to UTI Urinary retention PEE, prerenal, improved Generalized weakness Severe protein calorie malnutrition NIDDM2 chronic CHF Hx DVT Hx breast cancer s/p double masectomy Hx colon cancer s/p resection Plan: Acute metabolic encephalopathy secondary to UTI Urinary retention Generalized weakness Severe protein calorie malnutrition Patient was able to ambulate with a walker at baseline according to report no history of dementia per at bedside. Mental status significantly improved and patient is at baseline. CT head was negative for any acute findings. urine cx (05/21): E. coli with intermediate resistance to rocephin Rocephin (05/21-05/22) switched to IV levaquin following culture results continue IV levaquin (05/23-). Patient completed Levaquin for UTI. Continue PT Acute respiratory failure with hypoxia and hypercapnia Associated with reflex tachycardia. Respiratory failure likely secondary to hypoventilation. Patient is currently tolerating 5-6 L high flow oxygen Wean oxygen to keep SaO2 88 to 92%. BiPAP as needed PEE, prerenal Resolved with IV fluid continue to monitor renal function NIDDM2 accu-cheks, SSI Hx DVT Hx breast cancer s/p double masectomy Hx colon cancer s/p resection Continue home medications. Patient made DNR by . I had a discussion with the patient and her . Patient and would like to proceed with hospice. Social service consulted for arrangement for home hospice. VTE: heparin sq Code: DNR Dispo: Home with hospice.
[2024-05-31 04:11] VITALS: O2SAT 100
[2024-05-31 05:18] VITALS: TEMP 97.6
--- NOTE | 2024-05-31 09:15 | P.DS ---
Admission Date: 05/21/24 Discharge Date: 05/31/24 Reason for Admission: AMS, PEE/UTI Brief History of Present Illness: 73-year-old female brought in via EMS for evaluation of altered mental status. She is unable to provide reliable history. As per , patient has been unable to walk for the past 3 days. Her mental status is also been declining in the interim PERIOD. She usually ambulates with a walker despite a contracted neck. Workup in the ER significant for PEE with a creatinine 1.63, abnormal urine analysis. During my evaluation, patient complained of pain. She looked clinically dry, cachectic and contracted. She is unable to provide much history. She received a dose of ceftriaxone in the ER. Hospital Course: Problem List: Acute metabolic encephalopathy secondary to UTI Urinary retention PEE, prerenal, improved Generalized weakness Severe protein calorie malnutrition NIDDM2 chronic CHF Hx DVT Hx breast cancer s/p double masectomy Hx colon cancer s/p resection Physician discharge instructions: Patient presents with progressive weakness, decreased responsiveness, decreased intake, inability to walk for 3 days secondary to UTI. CT head was negative for any acute findings. Urine culture ended up growing E.coli, partially resistant to the empiric rocephin she initially received. Antibiotic was switched to levaquin following culture results and patient had improvement. Mental status significantly improved and returned to patient's baseline. Patient completed ~7 days of IV levaquin to treat UTI. She worked with PT and was able to sit at edge of bed and transfer with assistance. Discussed at length with patient and family, given her progressive declination, chronic comorbidities, worsening quality of life, they have decided to proceed with [facility] home hospice. Hospice DME supplies/equipment delivered 05/30 evening. Physical Exam: GEN: Awake, Oriented x2 Neck: contracted neck/torticollis, kyphosis. CV: Regular rate and rhythm, no edema Pulm: clear bilaterally, no rhonchi or crackles. ABD: soft, nontender, nondistended Integumentary: scattered bruises on extremities. Vital Signs/Physical Exam: Temp Pulse Resp BP Pulse Ox 97.6 F 88 14 130/67 99 05/31/24 08:00 05/31/24 08:00 05/31/24 08:00 05/31/24 08:00 05/31/24 08:00 Laboratory Data at Discharge: WBC 5.20 thou/uL (4.3-10.9) 05/30/24 05:20 Hgb 11.4 g/dL (12.0-15.0) L 05/30/24 05:20 Hct 36.7 % (36.0-45.0) 05/30/24 05:20 Plt Count 190 thou/uL (152-406) 05/30/24 05:20 Sodium 141 mEq/L (136-145) 05/30/24 05:20 Potassium 3.8 mEq/L (3.5-5.1) 05/30/24 05:20 BUN 5 mg/dL (7-18) L 05/30/24 05:20 Creatinine 0.25 mg/dL (0.55-1.02) L 05/30/24 05:20 Glucose 94 mg/dL (74-106) 05/30/24 05:20 Phosphorus 2.6 mg/dL (2.5-4.9) 05/27/24 13:54 Magnesium 1.5 mg/dL (1.6-2.4) L 05/27/24 13:54 Total Bilirubin 0.5 mg/dL (0.2-1.0) 05/24/24 06:00 AST 18 U/L (15-37) 05/24/24 06:00 ALT 17 U/L (13-56) 05/24/24 06:00 Alkaline Phosphatase 63 U/L (45-117) 05/24/24 06:00 Home Medications: Multivitamin [Multivitamins] 1 cap PO DAILY 10/25/14 Ropinirole HCl [Requip*] 0.25 mg PO DAILY 10/25/14 Trazodone HCl [Desyrel] 100 mg PO BEDTIME 10/25/14 Venlafaxine HCl *Xr* [Effexor XR] 75 mg PO BID 10/25/14 clonazePAM [Clonazepam] 0.5 mg PO DAILY PRN 12/16/19 Gabapentin 600 mg PO TID 05/22/24 Naltrexone HCl [Lotrexone] 4.5 mg PO DAILY 05/22/24 Oxycodone HCl 5 mg PO 05/22/24 Physician Discharge Instructions: Physician discharge instructions: Patient presents with progressive weakness, decreased responsiveness, decreased intake, inability to walk for 3 days secondary to UTI. CT head was negative for any acute findings. Urine culture ended up growing E.coli, partially resistant to the empiric rocephin she initially received. Antibiotic was switched to levaquin following culture results and patient had improvement. Mental status significantly improved and returned to patient's baseline. Patient completed ~7 days of IV levaquin to treat UTI. She worked with PT and was able to sit at edge of bed and transfer with assistance. Discussed at length with patient and family, given her progressive declination, chronic comorbidities, worsening quality of life, they have decided to proceed with [facility] home hospice. Hospice DME supplies/equipment delivered 05/30 evening. Followup: Nathan Radford MD [Primary Care Provider] - Time spent managing pt's care (in minutes): 45
[2024-05-31 11:46] VITALS: BP 132/82
== END 2024-05-31 13:15 | disposition hospice, home (50) | DRG 682 ==
LOC: ER 17:06 → ERHOLD 22:46 → 4TH 05-22 01:11
PROVIDERS: ADMIT Internal Medicine; ATTEND Hospitalist
PROC: 4A033R1 Measurement of Arterial Saturation, Peripheral, Percutaneous Approach (ICD-10-PCS; principal; 2024-05-24)
PROC: 5A09557 Assistance with Respiratory Ventilation, Greater than 96 Consecutive Hours, Continuous Positive Airway Pressure (ICD-10-PCS; 2024-05-24)
PROC: 02HV33Z Insertion of Infusion Device into Superior Vena Cava, Percutaneous Approach (ICD-10-PCS; 2024-05-24)
DX: N17.9 Acute kidney failure, unspecified (principal); E43 Unspecified severe protein-calorie malnutrition; G93.41 Metabolic encephalopathy; J96.01 Acute respiratory failure with hypoxia; J96.02 Acute respiratory failure with hypercapnia; N39.0 Urinary tract infection, site not specified; R64 Cachexia; Z16.29 Resistance to other single specified antibiotic; I47.10 Supraventricular tachycardia, unspecified; I50.9 Heart failure, unspecified; E11.9 Type 2 diabetes mellitus without complications; F32.A Depression, unspecified; G25.81 Restless legs syndrome; M43.02 Spondylolysis, cervical region; M19.90 Unspecified osteoarthritis, unspecified site; B96.20 Unspecified Escherichia coli [E. coli] as the cause of diseases classified elsewhere; R33.9 Retention of urine, unspecified; Z66 Do not resuscitate; Z51.5 Encounter for palliative care; Z88.0 Allergy status to penicillin; Z88.5 Allergy status to narcotic agent; Z88.6 Allergy status to analgesic agent; Z85.3 Personal history of malignant neoplasm of breast; Z88.8 Allergy status to other drugs, medicaments and biological substances; Z91.09 Other allergy status, other than to drugs and biological substances; Z92.86 Personal history of gene therapy; Z91.040 Latex allergy status; Z90.13 Acquired absence of bilateral breasts and nipples; Z68.21 Body mass index [BMI] 21.0-21.9, adult; Z91.041 Radiographic dye allergy status; Z90.710 Acquired absence of both cervix and uterus; Z86.718 Personal history of other venous thrombosis and embolism; Z85.038 Personal history of other malignant neoplasm of large intestine; Z79.899 Other long term (current) drug therapy
CPT/HCPCS: 36415; 36600; 51702; 70450; 71045; 80048; 80053; 81001; 82550; 82805; 82947; 83605; 83735; 84100; 84484; 85025; 87077; 87086; 87088; 87186; 93005; 94660; 94760; 96361; 96374; 97110; 97116; 97161; 97530; 99285; J0696; J1644; J3475; J7030